=== PATIENT | male | born 1995 | race Caucasian/White ===

== ENCOUNTER 2018-02-05 14:38 | Emergency (ER) | payer MEDICAID ==
[~2018-02-05] VITALS: Ht 165.1 cm; Wt 59.0 kg
[2018-02-05 15:34] VITALS: BP 141/91
[2018-02-05] MEDS ORDERED: LORazepam 0.5mg tab ORAL ONE (15:45)
--- NOTE | 2018-02-05 15:55 | Emergency Room Report ---
History of Present Illness General Chief Complaint: General Complaint Source: Patient Present Illness HPI Patient presents with complaints of discomfort Reports that he feels waves of emotion coming in the morning times over the past several days Patient has been started on Zyprexa about 1-1/2 months ago reports that initially it was helpful Now he feels that it is less helpful than before Denies any homicidal or suicidal thoughts Denies any chest pain He feels anxious Allergies: Coded Allergies: No Known Allergies (Unverified , 02/05/18) Patient History Past Medical History: see triage record Pertinent Family History: none Reviewed Nursing Documentation: PMH: Agreed; PSxH: Agreed Nursing Documentation-PMH Past Medical History: No History, Except For Review of Systems All Other Systems: negative except mentioned in HPI Physical Exam Vital Signs Date Time Temp Pulse Resp B/P (MAP) Pulse Ox O2 Delivery O2 Flow Rate FiO2 02/05/18 15:17 98.2 104 16 141/91 96 Room Air 98.2 Sp02 EP Interpretation: reviewed, normal General Appearance: no apparent distress Head: normocephalic, atraumatic Eyes: bilateral eye PERRL, bilateral eye EOMI ENT: normal pharynx, no angioedema Neck: supple Respiratory: lungs clear, normal breath sounds Cardiovascular #1: regular rate, rhythm Gastrointestinal: non tender, soft Medical Decision Making Diagnostic Impression: Primary Impression: Bipolar disorder ER Course Patient presents with request of assistance with his bipolar disorder Denies any homicidal or suicidal thoughts He reports that recently he has been getting more waves of palpitations and anxiousness Does not feel that the current medication is working any more I discussed with him regarding outpatient resources [facility]cluding [facility] he reports that he was at that facility and [place] that is where he was given his medication Patient was driven here by his partner And at this time his partner is contacted to also provide transportation to the appropriate psychiatric facility Patient does not meet any criteria for 5150, does not have any homicidal or suicidal thoughts and will require dispositioned with partner for close outpatient follow-up Last Vital Signs Date Time Temp Pulse Resp B/P (MAP) Pulse Ox O2 Delivery O2 Flow Rate FiO2 02/05/18 15:34 98.2 104 16 141/91 96 Room Air 98.2 Status: improved Disposition: HOME, SELF-CARE Condition: Improved Additional Instructions: Follow up with the appropriate psychiatric facility provided return with any concerns or changes Kristina Juarez 12, 2018 15:55
[2018-02-05 16:23] VITALS: BP 135/80
== END 2018-02-05 16:23 | disposition home or self-care (01) ==
LOC: EMR 15:37
DX: F31.9 Bipolar disorder, unspecified (principal); Z79.899 Other long term (current) drug therapy
CPT/HCPCS: 99283